=== PATIENT | female | born 1995 | race Hispanic/Latino ===

== ENCOUNTER 2020-08-10 13:37 | Inpatient (IN) | payer MEDICAID, SELFPAY ==
[2020-08-10] MEDS ORDERED: hydrALAZINE 20 MG/ML VIAL SLOW IVP PRN ×2 (13:39→18:01)
[2020-08-10] MEDS ORDERED: Butorphanol Tartrate 1 MG/ML VIAL SLOW IVP PRN (13:52)
[2020-08-10] MEDS ORDERED: Docusate 100 MG CAP PO PRN (13:52)
[2020-08-10] MEDS ORDERED: Ondansetron PF 4 MG/2 ML Vial IVP PRN ×3 (13:52→18:01)
[2020-08-10] MEDS: Lactated Ringer's 1,000 ML IV SCH ×2 (14:00→15:50)
[2020-08-10 14:37] LABS: Hemoglobin 11.4 g/dL (12.0-15.5); Mean Corpuscular Hemoglobin 25.3 pg (27.0-33.0); Mean Corpuscular Volume 81.8 fl (81.6-98.3); Mean Platelet Volume 12.3 fl (7.4-10.4); Platelet Count 193 10x3/uL (150-450); RBC Distribution Width 14.6 % (11.5-14.5); White Blood Cell (WBC) Count 12.7 10x3/uL (3.5-10.5)
[2020-08-10 14:54] LABS: Bilirubin Neg (Negative); Blood, Urine 25 (Negative); Clarity Slightly Cloudy (Clear); Glucose, Urine (Dipstick) Normal (Negative); Ketone, Urine 5 mg/dL (Negative); Leukocyte 25 (Negative); Nitrite Negative (Negative); Protein, Urine (Dipstick) Negative (Neg-Trace); Urobilinogen Normal mg/dL (Less than 2)
[2020-08-10] MEDS ORDERED: Fentanyl 4 mcg/Bup 0.1% Cadd 100 ML ONE (15:01)
[2020-08-10 15:05] LABS: Syphilis Antibody Nonreactive (Nonreactive); Syphilis Antibody Index 0.03 S/CO (<1.00 Non-Reactive)
[2020-08-10 15:06] LABS: Amnisure Test RUPTURE DETECTED (No Rupture)
[2020-08-10] MEDS ORDERED: Lidocaine 1% (PF) 30 ML VIAL SC PRN (15:07)
[2020-08-10] MEDS ORDERED: Misoprostol 200 MCG TAB PR PRN (15:07)
[2020-08-10] MEDS ORDERED: Ibuprofen 800 MG TAB PO PRN (15:07)
[2020-08-10 15:08] LABS: WBC/HPF 0-3 HPF (0-3)
[2020-08-10 15:11] LABS: Renal Epithelial 0-3 HPF (None Seen)
[2020-08-10 15:13] LABS: Bacteria/HPF Rare-Few HPF (None Seen)
[2020-08-10] MEDS ORDERED: Penicillin G Potassium 5 MILL.UNITS in Sodium Chloride 0.9% 100 ML IVPB SCH (15:15)
[2020-08-10] MEDS ORDERED: Penicillin G 2.5 MILL.units 2.5 MILL.UNITS in Premix Bag 1 BAG IVPB SCH (15:15)
[2020-08-10 15:17] VITALS: BMI 27.4
[2020-08-10] MEDS ORDERED: NS w/ Oxytocin 30 units 500 ML IVPB PRN (15:26)
[2020-08-10] MEDS ORDERED: NS w/ Oxytocin 30 units 500 ML IVPB SCH ×2 (15:30)
[2020-08-10 15:49] LABS: Amphetamine Not Detected (NotDetected); Barbiturates Screen Not Detected (NotDetected); Benzodiazepine Screen Not Detected (NotDetected); Cocaine Metabolite Screen Not Detected (NotDetected); Methadone Not Detected (NotDetected); Methamphetamine Not Detected (NotDetected); Opiate Screen Not Detected (NotDetected); Oxycodone Screen Not Detected (NotDetected); Phencyclidine (PCP) Not Detected (NotDetected); THC/Cannabinoid Screen Not Detected (NotDetected); Tricyclic Screen Not Detected (NotDetected)
[2020-08-10] MEDS ORDERED: diphenhydrAMINE 50 MG/ML VIAL IVP PRN (16:11)
[2020-08-10] MEDS ORDERED: Lactated Ringer's 500 ML IV PRN (16:11)
[2020-08-10] MEDS ORDERED: ePHEDrine 50 MG/ML VIAL SLOW IVP PRN (16:11)
[2020-08-10] MEDS ORDERED: Acetaminophen 325 MG TAB PO PRN (16:11)
[2020-08-10] MEDS ORDERED: Naloxone HCl 0.4 mg/ml Vial IVP PRN ×2 (16:11)
[2020-08-10] MEDS ORDERED: Promethazine HCl 25 MG/ML VIAL IM PRN (16:11)
[2020-08-10] MEDS ORDERED: Fentanyl 4 mcg/Bupivacaine 0.1% Cassette 100 ML EPIDURAL SCH (16:15)
[2020-08-10] MEDS ORDERED: Communication Order-Pharmacy FS SCH (16:15)
[2020-08-10] MEDS: NS w/ Oxytocin 30 units 500 ML IV SCH ×2 (17:07→19:06)
[2020-08-10] MEDS ORDERED: Misoprostol 200 MCG TAB ONE (17:18)
[2020-08-10] MEDS ORDERED: Carboprost 250 MCG/ML AMP ONE (17:19)
[2020-08-10] MEDS ORDERED: Methylergonovine 0.2 MG/ML VIAL ONE (17:19)
[2020-08-10] MEDS ORDERED: CEFAZOLIN 1 GM VIAL SLOW IVP SCH (17:45)
[2020-08-10] MEDS ORDERED: Benzocaine-Menthol 82.5 ML CAN TOP PRN (18:01)
[2020-08-10] MEDS ORDERED: diphenhydrAMINE 25 MG CAP PO PRN (18:01)
[2020-08-10] MEDS ORDERED: Lanolin Ointment 7 GM TUBE TOP PRN (18:01)
[2020-08-10] MEDS ORDERED: Methylergonovine 0.2 MG/ML VIAL IM PRN (18:01)
[2020-08-10] MEDS ORDERED: Bisacodyl 10 MG SUPP PR PRN (18:01)
[2020-08-10] MEDS ORDERED: Adacel (T-DAP) 0.5 ML SYRINGE IM ONE (18:01)
[2020-08-10] MEDS ORDERED: Milk Of Magnesia 30 ML UDCUP PO PRN (18:01)
[2020-08-10] MEDS ORDERED: Misoprostol 200 MCG TAB VAG PRN (18:01)
[2020-08-10] MEDS ORDERED: Preparation H Ointment 28 GM TUBE PR PRN (18:01)
[2020-08-10] MEDS ORDERED: CEFAZOLIN 1 GM VIAL IVPB SCH (19:01)
[2020-08-10] MEDS ORDERED: CEFAZOLIN 2 GM in Premix Bag 1 BAG IVPB SCH (19:15)
[2020-08-10 22:40] LABS: HBSAB Concentration 81.28 mIU/mL; Hep B Surf AB Reactive (NonReactive)
[2020-08-11 01:27] LABS: SARS-CoV-2 PCR by NAA Not Detected (NotDetected)
[2020-08-11] MEDS: Ibuprofen 800 MG TAB PO SCH ×4 (05:45→21:31)
[2020-08-11 07:48] LABS: Hep B Surf Ag Non-Reactive S/CO (NonReactive)
[2020-08-11 08:07] LABS: HBSAg Index 0.21 S/CO (0-0.99)
[2020-08-11] MEDS: Prenatal Vitamin 1 TAB PO SCH (09:02)
[2020-08-11] MEDS: Docusate Calcium (SURFAK) 240 MG CAP PO SCH ×3 (09:02→21:32)
[2020-08-11] MEDS: Ferrous Sulfate 325 MG TAB PO SCH ×2 (10:52→18:25)
[2020-08-11 20:29] LABS: HIV (1/2) Antibody/Antigen NonReactive (NonReactive); HIV 1/2 INDEX 0.07 S/CO (<1.00)
[2020-08-12] MEDS: Ibuprofen 800 MG TAB PO SCH ×2 (06:03→15:22)
[2020-08-12] MEDS: Docusate Calcium (SURFAK) 240 MG CAP PO SCH (10:29)
[2020-08-12] MEDS: Prenatal Vitamin 1 TAB PO SCH (10:29)
[2020-08-12] MEDS: Ferrous Sulfate 325 MG TAB PO SCH (10:29)
[2020-08-12 12:58] VITALS: BP 122/60; TEMP 97.6
[2020-08-13 17:16] LABS: Chlamydia by PCR Not Detected (NotDetected); GC by PCR Not Detected (NotDetected)
== END 2020-08-12 17:55 | disposition home or self-care (01) | DRG 807 ==
LOC: CSHLD/OP 13:37 → CSHLD 15:12 → CSHPP 08-11 00:48
PROVIDERS: ADMIT Obstetrics & Gynecology; ATTEND Obstetrics & Gynecology
PROC: 10E0XZZ Delivery of Products of Conception, External Approach (ICD-10-PCS; principal; 2020-08-10)
DX: O34.593 Maternal care for other abnormalities of gravid uterus, third trimester (principal); Z37.0 Single live birth; Z20.822 Contact with and (suspected) exposure to COVID-19; Z3A.37 37 weeks gestation of pregnancy; N85.5 Inversion of uterus
CPT/HCPCS: 36415; 51702; 76805; 80306; 81001; 84112; 85027; 86706; 86762; 86780; 86850; 86900; 86901; 87081; 87340; 87389; 87480; 87491; 87510; 87591; 87635; 87660; 99285; J0690; J2540; J2590; J3490; U0003; U0005

== ENCOUNTER 2022-03-14 13:50 | Emergency (ER) | payer MEDICAID, OTHER ==
[2022-03-14 14:59] LABS: #Eosinphils 0.1 10x3/uL (0.0-0.5); #Monocytes 0.9 10x3/uL (0.0-1.1); %Basophils 0.3 % (0.0-2.0); %Eosinophils 1.2 % (0.0-6.0); %Lymphocytes 23.3 % (18.0-47.0); %Monocytes 8.3 % (0.0-10.0); %Neutrophils 66.5 % (40.0-75.0); Mean Corpuscular Hemoglobin 27.8 pg (27.0-33.0); Mean Corpuscular Volume 84.5 fl (81.6-98.3); Mean Platelet Volume 10.2 fl (7.4-10.4); Platelet Count 336 10x3/uL (150-450); RBC Distribution Width 13.3 % (11.5-14.5); Red Blood Cell (RBC) Count 4.31 10x6/uL (3.90-5.03); White Blood Cell (WBC) Count 10.5 10x3/uL (3.5-10.5)
[2022-03-14 15:14] LABS: ALT (SGPT) 8 U/L (8-55); AST (SGOT) 14 U/L (5-34); Albumin 4.8 g/dL (3.5-5.0); Alkaline Phosphatase 65 U/L (40-110); Anion Gap 12 mmol/L (10-20); BUN (Urea Nitrogen) 11 mg/dL (7.0-18.7); Bilirubin, Total 0.7 mg/dL (0.2-1.2); Calc. Creatinine Clearance 0 mL/min (70-130); Calcium 9.6 mg/dL (7.8-10.44); Carbon Dioxide 24 mmol/L (22-29); Chloride 105 mmol/L (98-107); Estimated GFR 127; Globulin 3.3 g/dL (2.4-3.5); Glucose 96 mg/dL (70-105); Potassium 4.1 mmol/L (3.5-5.1); Protein, Total 8.1 g/dL (6.0-8.3); Sodium 137 mmol/L (136-145)
== END 2022-03-14 17:47 | disposition home or self-care (01) ==
LOC: CSHERS 13:50
DX: N93.9 Abnormal uterine and vaginal bleeding, unspecified (principal)
CPT/HCPCS: 76856; 80053; 84702; 85025; 86850; 86900; 86901